=== PATIENT | male | born 1955 | race Caucasian/White ===

== ENCOUNTER 2019-07-30 16:31 | Emergency (ER) | payer OTHER ==
[~2019-07-30] VITALS: Ht 188 cm; Wt 104.3 kg
[2019-07-30 17:58] LABS: Basophils # (auto) 0.1 uL; Basophils % (auto) 0.9 % (0.0-2.0); Eosinophils # (auto) 0.1 uL; Eosinophils % (auto) 1.9 % (0.0-7.0); Hematocrit 41.7 % (41.0-53.0); Hemoglobin 14.3 g/dL (13.5-17.5); Lymphocytes # (auto) 1.2 uL; Mean Corpuscular Hgb Conc. 34.2 g/dL (32.0-36.0); Mean Corpuscular Volume 99.5 fL (80.0-100.0); Monocytes # (auto) 0.6 uL; Monocytes % (auto) 8.8 % (0.0-12.0); Neutrophils # (auto) 4.9 uL; Neutrophils % (auto) 70.4 % (37.0-80.0); Platelet Count (auto) 95 10^3/uL (140-450); Red Blood Cells 4.19 10^6/uL (4.5-5.90); Red Cell Distribution Width 13.1 % (11.8-14.3); White Blood Cell 6.9 10^3/uL (4.4-10.8)
[2019-07-30 18:09] LABS: Alanine Aminotransferase 19 U/L (16-61); Albumin 3.3 g/dL (3.4-5.0); Anion Gap 9 (5-15); Aspartate Aminotransferase 16 U/L (15-37); BUN/Creatinine Ratio 8.3; Blood Urea Nitrogen 9 mg/dL (7-18); Carbon Dioxide 25 mmol/L (21-32); Chloride 106 mmol/L (98-107); GFR African American 88 mL/min; GFR Non-African American 73 mL/min; Glucose 85 mg/dL (74-106); Potassium 3.8 mmol/L (3.5-5.1); Sodium 140 mmol/L (136-145)
[2019-07-30 18:16] LABS: Alkaline Phosphatase 89 U/L (45-117); Bilirubin, Total 0.5 mg/dL (0.2-1.0); Total Protein 7.7 g/dL (6.4-8.2)
[2019-07-30] MEDS ORDERED: ASPirin 81 mg TAB PO ONE (19:00)
[2019-07-30 20:39] LABS: Urine Specific Gravity 1.007 (1.001-1.035)
[2019-07-30 20:40] LABS: Urine Blood Negative /uL (Negative)
[2019-07-30] MEDS ORDERED: LORazepam 2MG/ML-1ML VIAL IV PRN (21:45)
[2019-07-30] MEDS ORDERED: LABETALOL HCL 5 MG/ML 4ML SYRINGE IV PRN (22:30)
[2019-07-30] MEDS ORDERED: ACETAMINOPHEN 325 MG TAB PO PRN (22:30)
[2019-07-30] MEDS ORDERED: QUEtiapine FUMARATE 100 MG TAB PO PRN (22:30)
[2019-07-30] MEDS ORDERED: SODIUM CHLORIDE 0.9% 1,000 ML IV SCH (22:30)
[2019-07-30 22:34] LABS: Cholesterol 205 mg/dL (< 200); HDL Cholesterol 51 mg/dL (40-59); LDL Cholesterol 118 mg/dL (< 100); Triglycerides 208 mg/dL (< 150)
[2019-07-30] MEDS ORDERED: ATORVASTATIN 20 MG TAB PO SCH (22:40)
[2019-07-30 22:46] LABS: Amphetamine Screen, Urine NEGATIVE (NEGATIVE); Barbiturate Scree,Urine NEGATIVE (NEGATIVE); Benzodiazephine Screen, Urine NEGATIVE (NEGATIVE); Cannabinoid Screen, Urine POSITIVE (NEGATIVE); Cocaine Screen, Urine NEGATIVE (NEGATIVE); Opiate Scree,Urine NEGATIVE (NEGATIVE); Phencyclidine Screen, Urine NEGATIVE (NEGATIVE)
[2019-07-30 22:56] VITALS: BP 127/84
[2019-07-30 23:13] LABS: % Iron Saturation 19.3 % (20-55)
[2019-07-30] MEDS ORDERED: FAMOTIDINE (10MG/ML) 2ML VL IV ONE (23:45)
[2019-07-31 01:18] VITALS: BP 136/84
[2019-07-31] MEDS ORDERED: ATORVASTATIN 20 MG TAB PO SCH (10:00)
[2019-07-31] MEDS ORDERED: ASPirin 81 mg TAB PO SCH (10:00)
[2019-07-31] MEDS ORDERED: PRAMIPEXOLE DIHYDROCHLORIDE MO 0.25 MG TAB PO SCH (22:00)
== END 2019-07-31 01:50 | disposition short-term general hospital (02) ==
LOC: EDBD 16:31 → ER 16:31
DX: I63.89 Other cerebral infarction (principal); G93.89 Other specified disorders of brain; F12.10 Cannabis abuse, uncomplicated
CPT/HCPCS: 36415; 70450; 80053; 80061; 80307; 81003; 82728; 83540; 83550; 84484; 85025; 93005; 96374; 99291; J3490